=== PATIENT | male | born 1965 | race Two or more races ===

== ENCOUNTER → 2016-06-24 | Outpatient (CLI) | payer BC ==
[~2016-06-24] MED LIST: FOLIC ACID DAILY; VIT. D DAILY
--- NOTE | 2016-06-24 15:59 | RADRPT ---
PROCEDURE: XR Left Hip and pelvis. CLINICAL INDICATION: Left hip pain. Pelvic pain. Postop. TECHNIQUE: Two views. Frontal pelvis and lateral left hip. COMPARISON: 07/02/2015. FINDINGS: There is no fracture or dislocation. The soft tissues are normal. There is a left hip total arthroplasty which appears satisfactory. There is no lytic or blastic lesion. The right hip is grossly normal. The upper pelvis is not included on the image. IMPRESSION: 1. Satisfactory postoperative appearance of the left hip. 2. Otherwise unremarkable study. 3. No change from 07/02/2015. RPTAT: QQ .Rip Raymond MD, MD Date Time Electronically viewed and signed by .Rip Raymond MD, MD on 06/24/2016 15:59 .R/
--- NOTE | 2016-06-29 18:16 | HKNOTE ---
DATE OF SERVICE: 06/24/2016 MAIN COMPLAINT: Checkup of left total hip replacement. HISTORY OF MAIN COMPLAINT: The patient is a 51-year-old male who underwent a left hip replacement p erformed by me in 2014. He has been extremely pleased with the results of surgery. Recently has been diagnosed as having colon cancer with metastases to the liver. He lost a great de al of weight. His is now static at about 185 pounds. He is getting chemotherapy and he has "a team of doctors including a [place] with a PhD at [employer]". He uses herbal tea and chemotherapy as wel l as acupuncture. He has recently seen Dr. Escobedo. He no longer has any back pain. Patient is also taking and "cancer tea". He states that the main colon tumor went from 4 cm to 2 cm on an MRI. The liver tumors have also sh runk by about the same proportion. PRESENT COMPLAINTS: The patient has absolutely no pain in his left hip. He has no problem with the hip. He comes in for "just some exercise advice" and to see if any metastases to his hip. PHYSICAL EXAMINATION GENERAL: The patient looks remarkably fit, considering all of the above. He is 51 years old. VITAL SIGNS: Height 5 feet 10 inches, weight 182 pounds. Blood pressure 135/65, temperature 98.3. Patient's gait is normal. He walks without a walking aid. HIPS: Examination of the left hip: A full range of motion without pain. IMAGING: Plain x-rays of the pelvis and left hip obtained today show a perfect left hip replacement . All components are well placed, well aligned and well attached to the bone. There is actually no suggestion that there might be metastases in the bone. MANAGEMENT: Patient given reassurance that his hip is doing well. I wished him luck. I certainly hope that somehow he can get over this very serious diagnosis. Patient will be seen again as dennis coelho for further evaluation and treatment. Dictated By: LAURIE FULLER/DESMOND Conf#: [id number] DID#: [id number]
== END | disposition home or self-care (01) ==
LOC: HKI 15:04
DX: Z03.89 Encounter for observation for other suspected diseases and conditions ruled out (principal); Z96.642 Presence of left artificial hip joint; C18.9 Malignant neoplasm of colon, unspecified; C78.7 Secondary malignant neoplasm of liver and intrahepatic bile duct; Z79.899 Other long term (current) drug therapy
CPT/HCPCS: 73502; G0463